=== PATIENT | male | born 1970 | race Caucasian/White ===

== ENCOUNTER 2017-09-03 11:11 | Emergency (ER) | payer MEDICAID ==
[~2017-09-03] VITALS: Ht 175.3 cm; Wt 80.7 kg
[2017-09-03 11:24] VITALS: Ht 175.3 cm; Wt 80.7 kg
[2017-09-03 12:30] VITALS: BP 156/90
== END 2017-09-03 12:56 | disposition home or self-care (01) ==
LOC: ED 11:11
DX: S46.211A Strain of muscle, fascia and tendon of other parts of biceps, right arm, initial encounter (principal); X50.9XXA Other and unspecified overexertion or strenuous movements or postures, initial encounter; Y93.89 Activity, other specified; Y99.8 Other external cause status; Y92.89 Other specified places as the place of occurrence of the external cause